=== PATIENT | female | born 1975 | race Caucasian/White ===

== ENCOUNTER 2018-03-24 11:13 | Observation (INO) | payer BC ==
[2018-03-24] MEDS ORDERED: Naloxone* 0.4 MG/ML 1 ML VIAL IV PUSH PRN (11:51)
[2018-03-24] MEDS ORDERED: Clindamycin 900 MG/D5W BAG(*) 900 MG/50 ML BAG IVPB ONE (12:00)
[2018-03-24] MEDS ORDERED: HYDROmorphone PCA* 20 MG/20 ML in PREMIX PCA SCH (12:00)
[2018-03-24 12:07] LABS: ABS Basophils 0.1 10^3/ul (0-0.2); ABS Eosinophils 0.1 10^3/ul (0-0.6); ABS Lymphocytes 1.5 10^3/ul (1.0-4.8); ABS Monocytes 0.4 10^3/ul (0-0.8); ABS Neutrophils 3.6 10^3/ul (1.5-7.7); ABS Nucleated RBC 0 10^3/ul; Eosinophil % 1.8 %; Hematocrit 38 % (35-47); Hemoglobin 12.6 g/dl (12.0-16.0); Lymphocyte % 26.5 %; Mean Corpuscular HGB Conc 34 g/dl (31-36); Mean Corpuscular Hemoglobin 29 pg (27-31); Mean Corpuscular Volume 87 fL (80-97); Nucleated Red Blood Cells % 0; Platelet Count 233 10^3/ul (150-450); Red Blood Count 4.33 10^6/ul (4.00-5.40); Red Cell Distribution Width 14 % (10.5-15); White Blood Count 5.6 10^3/ul (3.5-10.8)
[2018-03-24] MEDS ORDERED: Ondansetron INJ* 2 MG/ML VIAL ONE (12:08)
[2018-03-24] MEDS ORDERED: Scopolamine 1.5 mg* PATCH ONE (12:08)
[2018-03-24] MEDS ORDERED: Naproxen TAB* 250 MG ONE (12:09)
[2018-03-24] MEDS ORDERED: LORazepam TAB(*) 1 MG ONE (12:09)
[2018-03-24] MEDS ORDERED: oxyCODONE SR TAB(*) 10 MG TAB.SR ONE (12:09)
[2018-03-24 12:16] LABS: Activated Partial Thrombo Time 33.6 seconds (26.0-36.3); INR 0.92 (0.77-1.02)
[2018-03-24 12:24] LABS: Anion Gap 5 mmol/L (2-11); BUN/Creatinine Ratio 25.5 (8-20); Blood Urea Nitrogen 14 mg/dL (6-24); CO2 Carbon Dioxide 28 mmol/L (22-32); Calcium 9.2 mg/dL (8.6-10.3); Chloride 104 mmol/L (101-111); EGFR Non-African American 120.1 (>60); Glucose 96 mg/dL (70-100); Potassium 3.8 mmol/L (3.5-5.0); Sodium 137 mmol/L (135-145)
[2018-03-24 12:31] LABS: HCG Pregnancy < 0.60 mIU/mL
[2018-03-24] MEDS ORDERED: HYDROmorphone PCA* 20 MG/20 ML PCA.SYRING ONE (12:57)
[2018-03-24] MEDS ORDERED: fentaNYL* 50 MCG/ML 5 ML VIAL (250 MCG VIAL) ONE (13:46)
[2018-03-24] MEDS ORDERED: Lidocaine 1% INJ* 10 MG/ML 30 ML SDV ONE (13:46)
[2018-03-24] MEDS ORDERED: Midazolam* 1 MG/ML 10 ML VIAL (10 MG) ONE (13:46)
[2018-03-24] MEDS ORDERED: Ketorolac INJ* 30 MG/ML 1 ML VIAL ONE ×2 (13:46→16:04)
[2018-03-24] MEDS ORDERED: Iohexol 350 (CONTRAST) 200 ML MDV IV ONE (13:47)
[2018-03-24] MEDS ORDERED: nitroGLYCERIN DRIP* 25,000 MCG/250 ML BTL ONE (13:47)
[2018-03-24] MEDS ORDERED: Heparin 2 UNITS/ML IVPREMIX* 3,000 ML IV ONE (13:47)
[2018-03-24] MEDS ORDERED: Heparin(*) 1000 UNIT/ML 10 ML VIAL CATH LAB IV ONE (14:32)
[2018-03-24] MEDS ORDERED: VERAPAMIL 2.5 MG/ML 2 ML VIAL ** 5 mg/2 ml ONE (14:32)
--- NOTE | 2018-03-24 18:57 | PN ---
Progress Note - Progress Note Date of Service: 03/24/18 SOAP: Subjective: Pain controlled at ~2/10. Denies nausea or emesis. No left wrist pain. Objective: Selected Entries 03/24/18 18:15 Pulse Rate 68 Blood Pressure 124/84 (mmHg) Blood Pressure 93 Mean O2 Sat by Pulse 99 Oximetry Sleepy, but arousable to voice AAO x 3, NAD Adb is soft to palpation Mild tenderness elicited over midline suprapubic area No bleeding at left radial arteriotomy. 2+ pulse at left radial artery. Sensation to light intact at left hand and wrist Motor function is grossly normal Wrist brace in place Sensation and motor function grossly intact in BLE Assessment: 42 YOF status post radial arteriotomy uterine artery embolization with post [place] pain and nausea currently controlled. Plan: 1. Standard post [place] IR protocol. 2. Will see patient in AM. 3. LEELA Hernandez encouraged to call/page me with [place] specific issues.
[2018-03-24] MEDS: Ketorolac INJ* 15 MG/ML 1 ML VIAL IV PUSH SCH (21:47)
[2018-03-24] MEDS: Ondansetron INJ* 2 MG/ML VIAL IV SCH (21:48)
[2018-03-24] MEDS: NS 0.9% 1000 ML* 1,000 ML IVPB SCH (23:59)
--- NOTE | 2018-03-25 02:32 | HP ---
HISTORY AND PHYSICAL: DATE OF ADMISSION: 03/24/18 PROVIDER: Juan Davey NP PRIMARY CARE PROVIDER: Dr. Billingsley ATTENDING PHYSICIAN WHILE IN THE HOSPITAL: Dr. Radha Ohara * (dictated by Juan Davey NP). CONSULTING PHYSICIAN: Dr. Ivan. CHIEF COMPLAINT: Excessive vaginal bleeding. HISTORY OF PRESENT ILLNESS: Ms. Gomez is a 42-year-old female with a history of asthma and uterine fibroids, who has a longtime history of excessive bleeding and pain, who presented for an elective uterine fibroid embolization with Dr. Ivan. Please refer to the H and P from Dr. Ivan for complete details. In brief, the patient has a longtime history of excessive menstrual bleeding and was found to have uterine fibroids. Due to the excessive bleeding , the patient opted for an elective uterine fibroid embolization with Dr. Ivan. In the immediate postoperative period, the patient complains of minor lower abdominal pain. She denies any recent illnesses or sick contacts. PAST MEDICAL HISTORY: Significant for: 1. Uterine fibroids. 2. Asthma. PAST SURGICAL HISTORY: x3. HOME MEDICATIONS: No home medications. ALLERGIES: No known drug allergies. FAMILY HISTORY: Father with a history of coronary artery disease with stenting. No reported history diabetes or cancer within the family. Denies any tobacco or alcohol or illicit drug use. She is . She lives with her . Surrogate decision maker in the event she is unable to make her own decision is her . She is a full code. REVIEW OF SYSTEMS: The patient denies any fevers, unintended weight loss, chest pain or edema. Denies any cough, congestion, or hemoptysis. Denies any nausea, vomiting, or diarrhea. She does complain of mild lower abdominal pain, postsurgical. Denies any hematuria, dysuria, focal weakness or sensory loss. Denies any visual complaints, dysphagia, arthralgias or myalgias, rashes, or lesions. Denies any psychosis or anxiety. PHYSICAL EXAMINATION GENERAL: At this time, Ms. Gomez is a 42-year-old female, who is lying on the stretcher in PACU. She does appear to be in mild distress. She appears well- nourished and well-developed. VITAL SIGNS: Blood pressure 114/73, heart rate 76, respirations 22, O2 saturation 99%, temperature 98.1. HEENT: Head is atraumatic and normocephalic. Eyes: EOMs are intact. Sclerae are anicteric and not pale. Oral mucosa appears to be moist. NECK: Supple. LUNGS: Lungs are clear to auscultation bilaterally. No wheezes, rales, or rhonchi. CARDIAC: S1, S2. Regular rate and rhythm. No murmurs, rubs, or gallops. ABDOMEN: Soft and flat. She does have mild tenderness to lower abdomen. Bowel sounds are present x4. EXTREMITIES: Pedal pules are +2 bilaterally. Post tibial pulses are +2 bilaterally. She is able to move all 4 extremities with 5/5 strength. NEUROLOGIC: She is awake, she is drowsy postoperatively. She is oriented x3. Speech is clear. Thought process is intact. There are no gross focal deficits. SKIN: Intact. LAB DATA AND DIAGNOSTIC STUDIES: WBCs were 5.6, RBCs 4.33, hemoglobin 12.6, hematocrit was 38, platelet count was 233. INR was 0.92. Sodium 137, potassium 3.8, chloride 104, carbon dioxide was 28, anion gap was 5, BUN was 14 , creatinine 0.55, glucose was 96, beta hCG was less than 0.60, calcium 9.2. ASSESSMENT AND PLAN: Ms. Gomez is a 42-year-old female with a past medical history significant for uterine fibroids, who presented for an elective uterine fibroid embolization with Dr. Ivan and she will be admitted observation. 1. Uterine fibroid embolization. Pain management per Dr. Ivan's orders. She will continue normal saline and KVO. 2. Deep venous prophylaxis. I have encouraged ambulation. The patient of course is at low risk with 1. 3. Fluids, electrolytes, and nutrition. She can have a regular diet. 4. Code status. She is a full code. TIME SPENT: Time spent on this admission was 60 minutes, greater than a half of that time was spent in [id number] with the patient obtaining my history and physical, the other half the time was spent in going over my plan of care and implementing my plan of care. I have discussed with my attending, Dr. Radha Ohara, she is in agreement with my plan. JUAN DAVEY, RAILROAD WHEELS AND AXLE INSPECTOR [id number]/[facility] #: [id number] ALEJANDRA
[2018-03-25] MEDS: Ketorolac INJ* 15 MG/ML 1 ML VIAL IV PUSH SCH (04:10)
[2018-03-25] MEDS: Ondansetron INJ* 2 MG/ML VIAL IV SCH (04:11)
[2018-03-25] MEDS: NS 0.9% 1000 ML* 1,000 ML IVPB SCH (05:50)
[2018-03-25 06:18] LABS: ABS Basophils 0.1 10^3/ul (0-0.2); ABS Eosinophils 0.1 10^3/ul (0-0.6); ABS Lymphocytes 1.7 10^3/ul (1.0-4.8); ABS Monocytes 0.5 10^3/ul (0-0.8); ABS Neutrophils 4.6 10^3/ul (1.5-7.7); ABS Nucleated RBC 0 10^3/ul; Eosinophil % 1.5 %; Hematocrit 34 % (35-47); Hemoglobin 11.3 g/dl (12.0-16.0); Lymphocyte % 24.7 %; Mean Corpuscular HGB Conc 33 g/dl (31-36); Mean Corpuscular Hemoglobin 29 pg (27-31); Mean Corpuscular Volume 87 fL (80-97); Mean Platelet Volume 8.2 fL (7.4-10.4); Nucleated Red Blood Cells % 0; Platelet Count 184 10^3/ul (150-450); Red Blood Count 3.91 10^6/ul (4.00-5.40); Red Cell Distribution Width 13 % (10.5-15); White Blood Count 7.1 10^3/ul (3.5-10.8)
[2018-03-25 06:40] LABS: BUN/Creatinine Ratio 14.5 (8-20); Calcium 8.5 mg/dL (8.6-10.3); EGFR Non-African American 120.1 (>60); Potassium 3.9 mmol/L (3.5-5.0)
--- NOTE | 2018-03-25 08:33 | PN ---
Progress Note - Progress Note Date of Service: 03/25/18 SOAP: Subjective: Patient says she feels "foggy and weird in her head". No pain complaints. Rates pain 2/10 when asked. No significant nausea or emesis overnight. Patient has taken sips of ice water only. + void. + ambulate with assistance. Objective: Selected Entries 03/25/18 03/25/18 03/25/18 04:09 04:20 07:33 Temperature 98.4 F Temperature Oral Source Respiratory 16 Rate Blood Pressure 110/75 (mmHg) Blood Pressure 86 Mean O2 Sat by Pulse 96 Oximetry NAD, AAO x 3 Left radial arteriotomy site is soft, nontender 2+ left radial pulse Motor function and sensation to left hand is grossly intact Left hand is warm to touch Minimal tenderness elicited when palpating suprapubic area Assessment: 42 YOF POD #1 s/p Uterine Artery Embolization with pain and nausea well controlled. Plan: 1. Transition IV to PO pharmacotherapy. 2. Assisted ambulation. 3. Advance diet ("bland" breakfast tray) 4. Routine Interventional Radiology follow up will include RN clinic follow up telephone calls Wednesday,03/28/18 and , 04/01/18. Follow up in the clinic in 6 weeks and 6 months. 5. Outpatient Rx regimen will include: Toradol 10 mg PO Q 6 hours x 3 days, dispense #15, 1 refill AFTER 3 days of Toradol, start Naproxen 250 mg PO every 12 hours x 3 days (DO NOT COMBINE TORADOL AND NAPROXEN) Reading 5/325 1 or 2 tablets PO Q 6 hours PRN x 5 days, dispense #30 (thirty), no refills Zofran 4 mg PO Q 6 hours x 5 days, dispense #30, 1 refill Scopoloamine 1.5 mg TD patch: on the morning of Wednesday, replace current patch with new patch and wear x 3 days 6. Patient STRONGLY advised to purchase laxative tea (E.g. Smooth Move) and drink one cup daily x 1 week to avoid constipation.
[2018-03-25] MEDS ORDERED: oxyCODONE/Acetamin 5/325 MG* TAB PO PRN (08:35)
[2018-03-25] MEDS ORDERED: Docusate CAP* 100 MG PO SCH (09:00)
[2018-03-25] MEDS ORDERED: Ketorolac TAB * 10 MG TAB PO SCH ×2 (09:00→12:00)
[2018-03-25] MEDS: Ondansetron ODT TAB* 4 MG PO SCH ×2 (09:39→13:06)
[2018-03-25 13:31] VITALS: BP 93/55
--- NOTE | 2018-03-26 05:54 | DS ---
AMENDED REPORT NOW INCLUDES DESIGNATED COSIGNER CC: Dr. Grey Billingsley; Dr. Reji Ivan * DISCHARGE SUMMARY: DATE OF ADMISSION: 03/24/18 DATE OF DISCHARGE: 03/25/18 PRIMARY CARE PROVIDER: Dr. Grey Billingsley. INTERVENTIONAL RADIOLOGIST: Dr. Reji Ivan. ATTENDING PHYSICIAN: Dr. Rafa Davis * (dictated by Mary Ley NP). PRIMARY DIAGNOSIS: Uterine fibroids, status post uterine fibroid embolization. SECONDARY DIAGNOSIS: None. HISTORY OF PRESENT ILLNESS AND HOSPITAL COURSE: Ms. Gomez is a 42-year-old female with a past medical history of asthma and uterine fibroids, who presented to [facility] on 03/24/18 for an elective uterine fibroid embolization with Dr. Ivan. Please see the history and physical by Alisson Davey NP, for a complete summary of the events leading up to this hospitalization. In short, the patient had a long history of heavy menstrual bleeding and uterine fibroids and opted for an elective UFE with Dr. Ivan. She is otherwise healthy and takes no home medication. On 03/24/18, she underwent a uterine fibroid embolization. The procedure was uneventful and she recovered well. Overnight, her pain was managed with a Dilaudid OPERATING COST CLERK and Toradol. As of this morning, the patient has tolerated a regular breakfast. She reports a decreased appetite, but no nausea or vomiting. She reports feeling generally weak and lethargic, though has no specific complaints. Pain is well controlled. She had a right radial access site which is clean, dry, and intact. The right radial pulse is strong and she has intact movement and sensation to the right hand and fingers. She has had a small amount of vaginal bleeding and understands that for any heavier vaginal bleeding, she should contact Dr. Ivan. Ms. Gomez is stable for discharge today. Vital signs are as follows: Temp 98.1, heart rate 67, respiratory rate 16, oxygen saturation 97% on room air, blood pressure 93/55. DISCHARGE MEDICATIONS: New medications: 1. Toradol 10 mg p.o. q.6 hours x3 days. 2. Naproxen 250 mg p.o. q.12 hours x3 days. 3. Ondansetron 4 mg p.o. q.6 hours x5 days. 4. Oxycodone/acetaminophen 5/325 mg 1 to 2 tabs p.o. q.6 hours x5 days p.r.n. pain. 5. Scopolamine patch 1.5 mg transdermal q.72 hours. Discontinued medication: 1. Ibuprofen. DISCHARGE PLAN: Ms. Gomez will be discharged back home. Activity will be as tolerated and as per Dr. Ivan's instructions: She can resume showering, but avoid tub bath and swimming for 1 week. She should avoid any strenuous exercise and activity for 1 week. She should slowly increase her activity after the first week. No driving while taking prescription pain medications. Pelvic rest for 4 weeks. Diet: Per Dr. Ivan, she can resume her regular diet. She has been strongly encouraged to use a laxative tea and increase her fiber and fluid intake. She has been provided instructions on expected vaginal discharge and reasons to call Dr. Ivan. She has also been instructed on care of her right wrist puncture site. Discharge medications have been prescribed per Dr. Ivan's recommendations. She should take Toradol every 6 hours for 3 days. After 3 days of Toradol, she should start naproxen every 12 hours for 2 days. She has been instructed to not combine Toradol and naproxen. Additionally, she can take [place] 1 to 2 tabs every 6 hours for pain. She can also take Zofran for nausea and has been prescribed a scopolamine patch, which she should replace on the morning of 03/27/18, and wear for 3 days. She should follow up with her primary care provider and Dr. Ivan as needed. She has been instructed to return to the emergency room or nearest hospital for any worsening symptoms, shortness of breath, lightheadedness, dizziness, chest discomfort, high fevers, chills, night sweats, loss of consciousness, or any other worrisome signs or symptoms. This is a summarized report of a complex medical history and hospital stay. For further details, please see the entire medical record. TIME SPENT: Approximately 35 minutes were spent on this discharge, greater than half of that time spent [id number] with the patient and her family, discussing discharge plans and instructions. MARY LEY, STUDIO DIRECTOR [id number]/[facility] #: [id number] ALEJANDRA
== END 2018-03-25 13:50 | disposition home or self-care (01) ==
LOC: CHICATH 11:13 → SSU 19:08
PROVIDERS: ADMIT Internal Medicine; ATTEND Internal Medicine
DX: D25.9 Leiomyoma of uterus, unspecified (principal); N92.4 Excessive bleeding in the premenopausal period; R11.0 Nausea; J45.909 Unspecified asthma, uncomplicated
CPT/HCPCS: 36415; 37243; 76937; 80048; 84702; 85025; 85610; 85730; 96374; 96375; 96376; 99156; 99157; A9270-GY; C1725; C1884; C1887; G0378; J1170; J1644; J1885; J2250; J2405; J3010